=== PATIENT | male | born 1985 | race Caucasian/White ===

== ENCOUNTER 2017-11-19 07:11 | Day surgery (SDC) | payer BC ==
--- NOTE | 2017-11-17 15:09 | HP ---
Amended report to enter cosigning physician. CC: Dr. Damian; Dr. Ehsan Santiago* PREOPERATIVE HISTORY AND PHYSICAL: DATE OF ADMISSION: This patient is scheduled for same-day surgery admission by Dr. Damian on , 11/19/17. DATE OF PREOPERATIVE HISTORY AND PHYSICAL EXAMINATION: 11/17/17. ATTENDING SURGEON: Dr. Andrea Damian* (dictated by Cris Pena NP) CHIEF COMPLAINT: Increasing size of lymph nodes, left neck. HISTORY OF PRESENT ILLNESS: The patient is a 32-year-old male, recently evaluated by Dr. Damian for enlarged lymph nodes of his left neck. He complained of tenderness in the area of the enlarged nodes as well as feeling very fatigued all the time. Today, he reports that there are new enlarged left neck lymph nodes as well as a new left axillary lymph node, and he has also noticed the onset of redness over the left neck that extends on to the anterior chest. He had been on courses of amoxicillin and clindamycin and stopped those about 2 weeks ago and noticed increased swelling and redness thereafter. Dr. Damian has examined the patient and has recommended proceeding with left neck lymph node biopsy as a same- day surgery procedure; he also discussed the findings with Dr. Pinedo and she did state that there is a suppurative type of Hodgkin's lymphoma and Dr. Damian prescribed clindamycin to start today. Dr. Damian described the nature of the surgical procedure, the relevant risks and benefits, and today I reviewed the expected postoperative care and recovery. The patient has had a chance to ask questions and stated that he understands the information and is satisfied with the answers given to his questions. He will sign surgical consent on the day of surgery. Fine needle aspiration of left neck lymph node done by Dr. Damian; the pathology for highly suspicious for a neoplastic process, most suggestive of Satish- Elissa cells. PAST MEDICAL HISTORY: Significant for anxiety and depression; he describes his anxiety as "flight anxiety," and when he feels trapped he flees the situation; he reports that his anxiety at times has become severe enough to cause vomiting and convulsions. PAST SURGICAL HISTORY: Plates and arvind into the left foot in 2005. MEDICATIONS: 1. Clindamycin 300 mg p.o. t.i.d. 2. Alprazolam 0.25 mg 1 to 2 p.o. up to 3 times a day. 3. Acetaminophen and codeine No. 3, 300/30 mg, 1 tab q.4 p.r.n. He is not currently taking that. 4. Sertraline 200 mg p.o. daily. 5. Epinephrine injection as needed for allergic reaction to bee sting. ALLERGIES: BUSPIRONE causes a feeling of being drunk and he is allergic to BEES. FAMILY HISTORY: Father had a history of prostate cancer. No known anesthesia complications, bleeding tendencies, or clotting disorders. 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 REVIEW OF SYSTEMS: Constitutional: No fevers, but he does describe night sweats recently and excessive fatigue. No significant weight loss. Endocrine: No diabetes or thyroid disease. Hematologic: No easy bruising or bleeding. No history of blood transfusions. Respiratory: He is a smoker, no dyspnea on exertion. No chronic cough. Cardiovascular: No anginal chest pain or palpitations. Gastrointestinal: No nausea, vomiting, diarrhea, GI bleeding, or constipation. Genitourinary: No dysuria. Musculoskeletal: No joint or back pain. Integumentary: Erythema over the left neck and supraclavicular area. Palpable enlarged left neck lymph nodes and there is also a palpable lymph node behind the left mandible and in the left axilla. Neurologic: No headache or blurred vision or areas of focal weakness or numbness. General: No previous anesthesia complications. No history of deep vein thrombosis or pulmonary embolism. PHYSICAL EXAMINATION GENERAL SURVEY: The patient is a 32-year-old male, well-developed, well- nourished, ill-appearing, in no acute distress. VITAL SIGNS: Height 72 inches, weight 194 pounds, body mass index 26.3. Blood pressure 118/70, pulse 96 and regular, respiratory rate 18, temperature 97.1. HEENT: Benign. NECK: Left side, indurated, swollen, enlarged lymph nodes with associated erythema that extends to the supraclavicular region. No palpable lymph nodes on the right side of the neck. LUNGS: Breath sounds bilaterally clear and equal. BACK: No CVA tenderness. HEART: Regular rate and rhythm. No murmurs or rubs appreciated. ABDOMEN: Soft, nondistended, active bowel sounds. No obvious masses, organomegaly, or evidence of ventral hernia. No inguinal lymph nodes are palpable. EXTREMITIES: No edema or skin ulcerations. GENITALIA AND RECTAL: Exams deferred. NEUROLOGIC: Alert and oriented x3, steady gait. SKIN: Left neck region with enlarged lymph nodes and erythema. IMPRESSION: Localized enlarged lymph nodes, left neck and left axilla. PLAN: Same-day surgery admission to Dr. Damian's service on , 11/19/17 , for left neck lymph node biopsy. BELEN PENA, ORCHARD SPRAYER [id number]/[facility] #: [id number] YANA
[~2017-11-19 07:11] MED LIST: Buffered Lidocaine 0.9% SYRIN* 5 ML/SYR SYRINGE INTRADERM ONE; Famotidine TAB* 20 MG PO ONE
[2017-11-19] MEDS ORDERED: ceFAZolin 2 GM PREMIX (*) 2 GM/50 ML BAG IVPB ONE (07:25)
[2017-11-19] MEDS ORDERED: Famotidine TAB* 20 MG ONE (07:25)
[2017-11-19] MEDS ORDERED: Midazolam* 1 MG/ML 5 ML VIAL (5 MG) ONE (07:43)
[2017-11-19] MEDS ORDERED: Buffered Lidocaine 0.9% SYRIN* 5 ML/SYR SYRINGE ONE (07:51)
[2017-11-19] MEDS ORDERED: Ondansetron INJ* 2 MG/ML VIAL ONE (08:25)
[2017-11-19] MEDS ORDERED: KETAMINE HCL* 50 MG/ML 10 ML VIAL ONE (08:25)
[2017-11-19] MEDS ORDERED: Lidocaine 2% PF * 5 ML VIAL ONE (08:25)
[2017-11-19] MEDS ORDERED: Propofol* 10 MG/ML 20 ML BTL IV PUSH ONE ×2 (08:25→09:38)
[2017-11-19] MEDS ORDERED: Dexamethasone IV* 4 MG/ML 1 ML (4 MG) ONE (08:25)
[2017-11-19] MEDS ORDERED: fentaNYL* 50 MCG/ML 2 ML VIAL (100 MCG VIAL) ONE (08:25)
[2017-11-19] MEDS ORDERED: Ketorolac INJ* 30 MG/ML 1 ML VIAL ONE (08:25)
[2017-11-19] MEDS ORDERED: Midazolam* 1 MG/ML 10 ML VIAL (10 MG) ONE (08:26)
[2017-11-19] MEDS ORDERED: Bupivacaine 0.25% SDV* 30 ML ONE (08:52)
[2017-11-19] MEDS ORDERED: Lidocaine 1% MPF wEPI 200,000* 30 ML SDV ONE (08:52)
[2017-11-19] MEDS ORDERED: Ondansetron INJ* 2 MG/ML VIAL IV PRN (09:34)
[2017-11-19] MEDS ORDERED: Acetaminophen TAB* 325 MG PO PRN (09:34)
[2017-11-19] MEDS ORDERED: Naloxone* 0.4 MG/ML 1 ML VIAL IV PRN (09:34)
[2017-11-19 10:52] VITALS: BP 110/62
--- NOTE | 2017-11-19 12:47 | OP ---
CC: Dr. Ehsan Santiago; Dr. Trisha Pinedo* OPERATIVE REPORT: DATE OF OPERATION: 11/19/17 - [facility] DATE OF : 87 SURGEON: Andrea Damian MD BUDGET ASSISTANT: None. ANESTHESIOLOGIST: Dr. Saini. ANESTHESIA: LMAC anesthesia. PRE-OP DIAGNOSIS: Lymphadenopathy. POST-OP DIAGNOSIS: Lymphadenopathy. OPERATIVE PROCEDURE: Biopsy of left neck adenopathy. DESCRIPTION OF PROCEDURE: The patient was supine on the operating table. After adequate intravenous sedation, compression stockings, Betzaida Hugger warmer and intravenous antibiotics, the left neck was prepped with antiseptic and draped in a sterile fashion. Local infiltrative anesthesia was administered and approximately 3 cm incision was created behind the angle of the mandible. This was carried through the platysma and approximately 2.5 cm lymph node was identified. This was dissected free and removed in its entirety and sent fresh to Pathology. The incision was closed in layers with 4-0 and 5-0 Vicryl followed by Steri-Strips. Pathology did a touch prep and found that this lymph node was diagnostic and therefore the patient was awakened and brought to Recovery in good condition. There were no complications. No drains. PATHOLOGIC SPECIMEN: Lymph node. COUNTS: Sponge and instrument counts correct. ESTIMATED BLOOD LOSS: Less than 10 mL. [id number]/[facility] #: [id number] [facility]
== END 2017-11-19 11:07 | disposition home or self-care (01) ==
LOC: OR 07:11
PROVIDERS: ATTEND Surgery
DX: C81.11 Nodular sclerosis Hodgkin lymphoma, lymph nodes of head, face, and neck (principal); F41.8 Other specified anxiety disorders; F17.210 Nicotine dependence, cigarettes, uncomplicated
CPT/HCPCS: 88184; 88187; 88188; 88189; 88305; 88333; 88341; 88342; A9270-GY; J0690; J1100; J1885; J2001; J2250; J2405; J2704; J3010

== ENCOUNTER 2017-12-03 09:30 | Day surgery (SDC) | payer BC ==
[~2017-12-03 09:30] MED LIST changes: +Dexamethasone IV* 4 MG/ML 1 ML (4 MG) ONE; +DiMENhydriNATE IV* 50 MG/ML VIAL ONE; +Ketorolac INJ* 30 MG/ML 1 ML VIAL ONE; +Lidocaine 2% PF * 5 ML VIAL ONE; +Midazolam* 1 MG/ML 5 ML VIAL (5 MG) ONE; +Propofol* 10 MG/ML 20 ML BTL IV PUSH ONE; +fentaNYL* 50 MCG/ML 2 ML VIAL (100 MCG VIAL) ONE
[2017-12-03] MEDS ORDERED: Famotidine TAB* 20 MG ONE (09:42)
[2017-12-03] MEDS ORDERED: ceFAZolin 2 GM PREMIX (*) 2 GM/50 ML BAG IVPB ONE (09:42)
[2017-12-03] MEDS ORDERED: ALPRAZolam TAB* 0.25 MG PO ONE (10:22)
[2017-12-03] MEDS ORDERED: KETAMINE HCL* 50 MG/ML 10 ML VIAL ONE (10:27)
[2017-12-03] MEDS ORDERED: Lidocaine 1% INJ* 10 MG/ML 30 ML SDV ONE (11:05)
[2017-12-03] MEDS ORDERED: Midazolam* 1 MG/ML 5 ML VIAL (5 MG) ONE (11:28)
[2017-12-03] MEDS ORDERED: Acetaminophen TAB* 325 MG PO PRN (12:30)
[2017-12-03] MEDS ORDERED: DiMENhydriNATE IV* 50 MG/ML VIAL IV PUSH PRN (12:30)
[2017-12-03] MEDS ORDERED: Naloxone* 0.4 MG/ML 1 ML VIAL IV PRN (12:30)
[2017-12-03] MEDS ORDERED: oxyCODONE TAB* 5 MG TAB PO PRN (12:30)
[2017-12-03 13:33] VITALS: BP 113/76
--- NOTE | 2017-12-03 13:52 | RAD ---
INDICATION: Central venous catheter placement COMPARISON: September 30, 2017 TECHNIQUE: An AP portable view obtained at 1320 hours is submitted. FINDINGS: Bones/Soft Tissues: There are no acute bony findings. There is a right-sided Xrjpnm-s-Xakb catheter terminating in the superior vena cava. Cardiomediastinal: The cardiomediastinal silhouette is normal. Lungs: There are no infiltrates. There is no pneumothorax. Pleura: There are no pleural effusions. Other: None IMPRESSION: RIGHT-SIDED CENTRAL VENOUS CATHETER. LUNGS CLEAR. NO PNEUMOTHORAX.
--- NOTE | 2017-12-03 15:02 | RAD ---
INDICATION: Zwihas-s-Kzzw catheter placement COMPARISON: None FINDINGS: 8.6 seconds of fluoroscopy were provided for the surgical department. Fluoroscopic spot imaging of the right chest were obtained for operative control and show right-sided Jnmjpd-k-[id number] catheter placement . The course of the catheter and the site of termination appear normal. CPT II Codes: G9500 (fluoro time doc)
--- NOTE | 2017-12-04 04:51 | OP ---
CC: Dr. Luan Worthington * DATE OF OPERATION: 12/03/17 - [facility] DATE OF : 87 SURGEON: Andrea Damian MD LOADING SUPERVISOR: None. ANESTHESIOLOGIST: Kristi Jaime MD ANESTHESIA: LMAC anesthesia. PRE-OP DIAGNOSIS: Hodgkin's lymphoma. POST-OP DIAGNOSIS: Hodgkin's lymphoma. OPERATIVE PROCEDURE: Placement of right subclavian 8-Faroese port. DESCRIPTION OF PROCEDURE: The patient was supine on the operating room table. After adequate intravenous sedation, compression stockings, Betzaida Hugger warmer, and intravenous antibiotics, the right chest and neck regions were prepped with antiseptic, draped in a sterile fashion. Local infiltrative anesthesia was administered and approximately 3-cm incision was created. Inferior pocket was created. Subclavian venipuncture carried out. Guidewire was passed under fluoroscopic guidance with peel-away introducer, measured, and cut to 23 cm and attached to the port, which was sutured into the pocket with 2-0 Prolene. Pocket was closed with 3-0 and 5-0 Vicryl followed by Steri-Strips. The port had good blood return and was flushed with saline and heparin solution. Everything was in good condition. The patient was brought to Recovery in good condition. No complications. No drains. No pathologic specimens. Sponge and instrument counts correct. Estimated blood loss was 10 mL. [id number]/[facility] #: [id number] [facility]
== END 2017-12-03 14:10 | disposition home or self-care (01) ==
LOC: OR 09:30
PROVIDERS: ATTEND Surgery
DX: C81.91 Hodgkin lymphoma, unspecified, lymph nodes of head, face, and neck (principal); Z72.0 Tobacco use; F41.9 Anxiety disorder, unspecified
CPT/HCPCS: 71045; 76000; A9270-GY; C1788; J0690; J1100; J1240; J1642; J1885; J2250; J2704; J3010